=== PATIENT | male | born 1930 ===

== ENCOUNTER 2016-11-18 16:03 | Emergency (ER) | payer MEDICARE ==
[2016-11-18 16:37] LABS: ABSOLUTE NEUTROPHIL COUNT 4.8 K/mm3 (1.8-7.7); BASO # 0.1 K/mm3 (0.0-0.2); BASO % 0.7 % (0.2-1.0); EOS # 0.2 (0.0-0.5); EOS % 3.2 % (0.9-2.9); HEMATOCRIT 40.4 % (32.0-52.0); HEMOGLOBIN 13.4 gm/l (14.0-18.0); IMM NEUT% 0.3 % (0-1); LYMPH # 1.9 (1.0-4.8); LYMPH % 24.3 % (15-45); MEAN CORPUSCULAR HEMOGLOBIN 33.2 pg (27.0-31.0); MEAN CORPUSCULAR HGB CONC 33.2 g/dl (33.0-37.0); MEAN PLATELET VOLUME 11.7 fl (7.4-10.4); MONO # 0.6 (0.0-0.8); MONO % 8.1 % (4-12); NEUT % 63.4 % (43-75); PLATELET COUNT 168 K/mm3 (130-400); RED CELL DISTRIBUTION WIDTH 13.4 % (11.5-14.5)
[2016-11-18 16:46] LABS: ALB/GLOB RATIO 1.4 (>1.0); ALBUMIN 3.7 gm/dL (3.5-5.7); CALCIUM 9.5 mg/dL (8.6-10.3)
[2016-11-18 16:51] LABS: TROPONIN I 0.04 ng/ml (0.0-0.06)
[2016-11-18 16:55] LABS: CKMB ISOENZYME 2.7 ng/ml (0.6-6.3)
[2016-11-18] MEDS ORDERED: Heparin Sodium 5000 unit/0.5ml syringe ONE (17:00)
[2016-11-18] MEDS ORDERED: HEPARIN SODIUM PREMIX 500 ML IV ONE (17:01)
== END 2016-11-18 17:18 | disposition other institution (70) ==
LOC: ED 16:03
DX: I21.3 ST elevation (STEMI) myocardial infarction of unspecified site (principal); I10 Essential (primary) hypertension; F17.290 Nicotine dependence, other tobacco product, uncomplicated
CPT/HCPCS: 85025; 82550; 82553; 80053; 84484; 99285; 96374; 93005; 99291; J1644